=== PATIENT | female | born 1960 | race Caucasian/White ===

== ENCOUNTER → 2016-05-18 | Day surgery (SDC) | payer BC ==
[2016-05-11 07:49] VITALS: Ht 160 cm; Wt 84.1 kg
[~2016-05-18] VITALS: Ht 160 cm; Wt 84.1 kg
[~2016-05-18] MED LIST: ATROPINE SULFATE 0.1 MG/ML 5ML SYR IV PRN; CEFAZOLIN 2000 MG/60 ML D5W IV SCH; DEXAMETHASONE SOD INJ 4 MG/ML VIAL ONE; EpINEphrine INJ 1MG/ML AMP 1 MG/ML AMP ONE; FENTANYL CITRATE INJ 50 MCG/1 ML 2 ML VIAL ONE; KETOROLAC TROMETHAMINE 30 MG/ML VIAL IV. PRN; LABETALOL HCL IV 5 MG/ML 20ML IV PRN; LACTATED RINGER'S 1000ML 1,000 ML IV SCH; LEVOFLOXACIN 500 MG TAB PO SCH; LIDOCAINE HCL 2% 2 ML VIAL (20MG/ML) ONE; MIDAZOLAM HCL 1 MG/ML 2ML VIAL ONE; ONDANSETRON INJ 2 MG/ML 2 ML VIAL IV PRN; ONDANSETRON INJ 2 MG/ML 2 ML VIAL ONE; OXYCODONE/ACETAMINOPHEN 5-325 TAB PO PRN; PROPOFOL IV EMULSION 10 MG/ML 20 ML VIAL IV ONE; ROPIVACAINE 0.5% 5 MG/ML 30 ML VIAL ONE; SODIUM CHLORIDE 0.9% 1000ML 1,000 ML IV SCH
--- NOTE | 2016-05-18 06:58 | History & Physical Bridge Note ---
H&P Re-Evaluation Bridge Note: I have examined the patient, reviewed the History & Physical and in the interval since the performance of the History & Physical I have noted the following changes of clinical significance: No changes noted
--- NOTE | 2016-05-18 06:59 | Discharge Instructions ---
Discharge Instructions Visit Reason for Visit: Right Knee Acl Tear Discharge Discharge Diagnosis / Problem: same Discharge Goals Goal(s): Decrease discomfort, Improve function Medications Stopped Medications Name(s): na Restart Stopped Medication(s): use scripts as directed Activity Recommendations Activity Limitations: as noted below Lifting Limitations: until after follow-up appointment Exercise/Sports Limitations: until after follow-up appointment May Resume Sexual Activity: when tolerated Shower/Bathe: keep incision dry Driving or Machine Use: Weightbearing Status: Right weightbearing (as tolerated) Anesthesia . Post Anesthesia Instructions: If you have had General Anesthesia or IV Sedation: * Do not drive today. * Resume driving when surgeon permits. * Do not make important decisions or sign legal documents today. * Call surgeon for: 1. Temperature elevations greater than 101 degrees F. 2. Uncontrollable pain. 3. Excessive bleeding. 4. Persistent nausea and vomiting. 5. Medication intolerance (nausea, vomiting or rash). * For nausea and vomiting use only clear liquids such as: tea, soda, bouillon until nausea subsides, then gradually increase diet as tolerated. * If you have any concerns or questions, call your surgeon's office. If physician is unavailable and it is an emergency, call 911 or go to the nearest emergency room. . Instructions / Follow-Up Instructions / Follow-Up The following instructions are a useful guide to questions you may have after your Anterior Cruciate Ligament Reconstruction surgery. If you have any questions contact the office at . ACTIVITY RECOMMENDATIONS: * Heavy manual labor is not permitted until 4-6 months after surgery. * Sports are not permitted until 6-9 months after surgery. * Return to activity is individualized. * DRIVING: Driving is not permitted until 3-4 weeks after surgery at a minimum. Please ask your doctor when it is safe to resume driving. If you have an automatic vehicle and your left leg has been operated on, then you may begin driving as soon as you are comfortable and can drive safely. * BATHING: You may shower or sponge-bathe immediately after surgery. The dressing will need to be covered with a plastic bag or plastic wrap until the dressing is changed on the fourth or fifth day after surgery. Once the dressing has been changed on the fourth or fifth day after surgery, you may shower and get the incision wet. * Wash with regular soap and water. * Do not bathe (submerge the incision), soak, swim or use a hot tub until the incision is completely healed over with normal skin and the doctor has given the OK to proceed. * There is no need to apply any ointments, powders or salves to your incision. * Do not apply alcohol or hydrogen peroxide directly to the incision. Diluted peroxide (50:50 mixture with sterile saline) may be used to clean dried blood from around the incision area. WORK/SCHOOL: * You may return to sedentary work or school when you are feeling comfortable. This is usually 3-7 days after surgery. * Expect increased discomfort with increased activity. Continue to elevate and ice the leg as much as possible. DIET: * Resume previous diet. MEDICATIONS: * You will have a prescription for pain medication and an anti-inflammatory medication after surgery. Use the pain pills for severe pain and the anti-inflammatory for less severe pain. * Once the pain pills have run out, try to use the anti-inflammatory. If this is not effective then contact the office for assistance. * The pain medication may cause nausea, constipation and sleepiness. You should see how they affect you before driving or similar activity. * The anti-inflammatory may cause stomach upset and bleeding. If this occurs, let your doctor know immediately . * Some patients may need blood clot prevention. This can be done with either a pill or a simple shot. Your doctor will advise you on when to begin these medications and how to take them. * Do not take aspirin or other anti-inflammatory products (i.e. Advil or Aleve ) if taking blood thinner medication. * Take a stool softener like Colace or a stimulant like Senokot to prevent constipation. SPECIAL CARE INSTRUCTIONS: The following instructions are a useful guide to questions you may have after your surgery. If you have any questions contact the office at . ICE: * You have the option of an ice cooler, gel packs or ice bags. * If you have an ice cooler, refer to the instructions for that device. * If you do not have an ice cooler, then you will need to use ice bags or gel packs. * Do not apply ice directly to the skin. * Use a thin dressing or stockinet between the skin and ice bag. * Apply ice for 20-30 minutes and repeat every 2-4 hours. This is especially important for the first 7-10 days after surgery. * Once the pain improves, use ice as needed. * The ice cooler can be used continuously. ELEVATION: * Keep your leg elevated at or above the level of your heart as much as possible. * Expect some increased discomfort and swelling if you are standing for any length of time. * When lying down, avoid placing anything under your knee. Rather, prop your leg up by placing several pillows under your heel or calf. DRESSING: * Your dressing will be changed at your first therapy appointment approximately 4-5 days after surgery. * Band-Aids, tape strips or gauze may be applied. You may then change your dressing daily. * Always wash your hands prior to touching the incision area. * Reapply dressing followed by the Carlos wrap or Tubi-lead cashier stockinet, ice cooling pad and then the brace. * Once the stitches are removed, you may leave the wound open to air or cover with an Carlos Bandage or Tubi-lead cashier stockinet. * If you have been given a white elastic stocking (DEVIN hose), wear as much as possible for the first 1-3 weeks depending on swelling. * Expect some bloody drainage for the first few days after surgery. * Leave the tape strips in place for 5-7 days. * Band-Aids and gauze may be changed daily. CRUTCHES: * You will need to use crutches after surgery. * Until your first doctor's appointment, you must use your crutches at all times when walking and should put no more than 50% of your normal weight on the surgical leg. * After your first doctor's appointment, you may gradually progress to full weight bearing and discontinue crutches as tolerated under the guidance of your therapist. * If you have had a microfracture procedure done, you may be advised to be non- weight bearing for up to 6 weeks. BRACE: * After surgery, you will be placed into a range of motion brace locked with your leg straight. This brace is to be worn at all times when walking (even with the crutches) and sleeping until your first doctors appointment. * The brace may be removed for therapy. * After your first therapy appointment, your therapist will open the brace to allow bending of the knee once your muscles are working better. * Until your first doctor's appointment, you should sleep with your brace locked with your knee fully straight. * If you have chosen to use a functional ACL brace then this brace will be supplied about 2-3 months after your surgery. During that time, you will attend therapy 2- 3 times per week. You will also need to do daily exercises for range of motion and strength as instructed. PROBLEMS/QUESTIONS: * If you have any problems such as severe pain, numbness, tingling or high fevers or if you have any questions, please contact the office at [phone]. * It is not uncommon to have some numbness and tingling after the surgery especially if you have had a nerve block done. This should gradually improve over the first 1- 2 days. If this persists longer or worsens then contact the office. FOLLOW UP VISIT: * If not already scheduled, please call the office at to schedule follow-up appointments for approximately 10 days and one month after surgery followed by monthly appointments thereafter. Diet Recommendations Recommended Home Diet: resume previous diet Pending Studies Studies pending at discharge: no Medical Emergencies . Who to Call and When: Medical Emergencies: If at any time you feel your situation is an emergency, please call 911 immediately. . Non-Emergent Contact Non-Emergency issues call your: Specialist Call Non-Emergent contact if: temperature is above 101.5 . . "Provider Documentation" section prepared by Anurag Presley.
--- NOTE | 2016-05-18 09:45 | [facility] Post Operative Brief Note ---
Immediate Operative Summary Operative Date May 18, 2016. Pre-Operative Diagnosis Right knee anterior cruciate ligament tear Post-Operative Diagnosis Same as preop Procedure(s) Performed Right Knee Exam Under Anesthesia, Arthroscopy, Anterior Cruciate Ligament Reconstruction With Achilles Allograft, Partial Medial Meniscectomy Surgeon Dr. Presley Rippler Surgeon(s) Marbin Gimenez PA-C Estimated Blood Loss Trace Findings mm tear/early djd/acl tear Fluids (cc crystalloids) 1200cc Specimens None Drains none Anesthesia LMA/block Complication(s) None Disposition Recovery Room / PACU
[2016-05-18] MEDS: FENTANYL CITRATE INJ 50 MCG/1 ML 2 ML VIAL IV PRN ×3 (10:15→10:34)
--- NOTE | 2016-05-18 10:31 | OPERATIVE REPORT ---
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 POSTOPERATIVE DIAGNOSIS: Same. OPERATION PERFORMED: 1. Exam under anesthesia. 2. Diagnostic arthroscopy. 3. Arthroscopic partial medial meniscectomy. 4. Endoscopic ACL reconstruction using Achilles allograft. SURGEON: Dr. Presley. VINEGAR MAKER: Marbin Gimenez PA-C. No resident or fellow available. 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 At this point in time, she continues to have locking, catching, giving way and does not feel secure with her knee. She wants to proceed with surgical treatment. OPERATION AND FINDINGS: OPERATION: The patient appropriately identified, site verified, consent verified, 2 grams of Ancef confirmed as being given. The knee was examined revealing grossly positive Saul, pivot shift, and anterior drawer test. The knee had a minor effusion. The knee was then sterilely prepped and draped in usual routine fashion. Tourniquet inflated to 275 mmHg after exsanguination of limb with a rubber Esmarch bandage and a knee arthroscope through an inframedial and infralateral portal. The knee was then cleaned out of any synovitis and a partial medial meniscectomy was carried out at the posterior half where she had a flap tear that based anteriorly, it was resected to a stable balanced contoured rim. The lateral compartment was relatively healthy with some minor fraying of the lateral meniscus. The intercondylar notch was quite tight. Limited notchplasty was performed, the stump of the ACL debrided, the PCL was intact. There was some minor patellofemoral cartilage changes as well. Once this was all cleaned out the tibial guide was then placed through the anteromedial portal, the skin marked and incision made with full thickness flaps and subperiosteal dissection with care taken to protect the MCL and the capsule. The drill hole was then made. All bone debris removed. The tunnel was then chamfered with the round rasp and the curved rasp. The over the top guide was then seated in appropriate position low on the lateral aspect of the condyle and the tunnel made approximately 30 mm in depth. All bone debris was then removed. The graft which was fashioned on the table prior to this had a 10 mm bone block with a TightRope. It was passed up into the joint, through the tunnels and secured on the femur with cortical suspension with a TightRope with excellent fixation. Prior to passing the graft the tibial socket tunnel was then fixed with the Arthrex washer lock system and 16 mm extended washer was seated with a 4E 6 mm cortical screw with excellent purchase on the washer and the screw. The wound was then irrigated. The tourniquet was deflated. No major bleeding encountered. Intraarticular assessment revealed the graft to be completely without impingement. There was good range of motion to hyperextension. There was good stability, the graft had good tension. The Saul and pivot shift were negative on exam. The wound was then irrigated one final time, 0 Vicryl used to cover the fascia, 2-0 plain for the subcutaneous layer and horizontal mattress 2-0 Prolene for skin. The portals closed with 3-0 nylon. Appropriate soft tissue dressing applied. The patient transferred to recovery room in satisfactory condition having tolerated the procedure well. Estimated blood loss trace. Crystalloid 1600 mL. DVT prophylaxis will be with Lovenox starting tomorrow. I attest to the content of the Intraoperative Record and any orders documented therein. Any exceptio ns are noted below.
--- NOTE | 2016-05-18 10:40 | OPERATIVE REPORT ---
PREOPERATIVE DIAGNOSIS: Right knee anterior cruciate ligament tear with medial meniscal tear. POSTOPERATIVE DIAGNOSIS: Right knee same. PROCEDURE: Right knee arthroscopy, ACL reconstruction using Achilles tendon allograft, and partial medial meniscectomy. SURGEON: Dr. Presley. LABOR RELATIONS WORKER: Marbin Gimenez PA-C. HISTORY OF PRESENT ILLNESS: This 55-year-old white female presented to the office with complaints of right knee instability after injuring herself. She was standing on a seat in an airplane in [place] while putting her overhead bag in the bin. She slipped off the seat and twisted her knee. X-ray and MRI have been obtained. She elects to proceed with surgical intervention in hopes of alleviating her instability and discomfort. OPERATION: The patient was administered regional block and then taken to the operating room where she was given general anesthetic. She was prepped and draped in the usual sterile fashion. Please see Dr. Presley's operative report for specifics of the procedure. I was present for the entire case from initial patient positioning through final wound closure. Assistance was provided in tissue retraction, hemostasis, graft preparation, graft placement, hardware placement, arthroscopy, and final wound closure. The patient was taken to recovery room in satisfactory condition.
--- NOTE | 2016-05-18 10:59 | Anesthesia Progress Nt - [facility] ---
Anesthesia Post Op Note Date & Time May 18, 2016 at 10:58 Vital Signs Pain Intensity: 2 Vital Signs Past 12 Hours Date Time Temp Pulse Resp B/P Pulse Ox O2 Delivery O2 Flow Rate FiO2 05/18/16 10:49 165/81 05/18/16 10:48 85 13 100 05/18/16 10:48 86 13 05/18/16 10:43 100 25 171/100 98 05/18/16 10:43 99 7 89 05/18/16 10:38 150/78 05/18/16 10:34 165/92 05/18/16 10:33 98 20 05/18/16 10:33 97 20 97 05/18/16 10:28 99 14 157/83 100 05/18/16 10:28 92 10 95 05/18/16 10:25 37.4 90 16 160/92 100 Room Air 05/18/16 10:23 192/82 05/18/16 10:18 99 23 160/92 100 05/18/16 10:18 100 23 05/18/16 10:15 165/117 05/18/16 10:13 105 19 93 05/18/16 10:13 107 30 05/18/16 10:09 150/89 05/18/16 10:05 173/74 05/18/16 10:03 108 19 99 05/18/16 10:03 99 30 100 05/18/16 09:59 158/89 05/18/16 09:58 102 12 98 05/18/16 09:58 99 12 05/18/16 09:53 36.5 88 14 158/86 100 6 05/18/16 09:53 155/91 05/18/16 08:10 0 05/18/16 08:05 91 05/18/16 08:05 92 21 99 05/18/16 08:04 131/67 05/18/16 08:00 93 05/18/16 08:00 95 14 98 05/18/16 07:58 139/81 05/18/16 07:55 96 18 98 05/18/16 07:55 95 05/18/16 07:54 92 18 99 05/18/16 07:54 93 05/18/16 07:53 145/71 05/18/16 07:49 91 05/18/16 07:49 92 15 98 05/18/16 07:48 130/83 05/18/16 07:44 85 05/18/16 07:44 86 16 98 05/18/16 07:43 144/76 05/18/16 07:40 90 05/18/16 07:40 92 16 97 05/18/16 07:38 134/77 05/18/16 07:35 95 05/18/16 07:35 94 20 99 05/18/16 07:33 174/88 05/18/16 07:33 160/99 05/18/16 07:30 0 05/18/16 06:32 36.9 88 20 163/99 96 Room Air Notes Mental Status: alert / awake / arousable, participated in evaluation Pt Amnestic to Procedure: Yes Nausea / Vomiting: adequately controlled Pain: adequately controlled Airway Patency, RR, SpO2: stable & adequate BP & HR: stable & adequate Hydration State: stable & adequate Anesthetic Complications: no major complications apparent
[2016-05-18 12:02] VITALS: BP 140/81; O2SAT 95
--- NOTE | 2016-05-19 13:15 | EDITING REQUIRED CODING QUERY ---
MENISCUS TEAR To promote full compliance with coding requirements relating to patient care physician participation is requested in all cases of speedometer inspector uncertainty. Please assist us with the question(s) below: Please specify the type of Meniscus Tear by placing an "X" within the parenthesis ( ). If other please document type. ( ) Current Injury (x ) Old Injury ( ) Other: (Please Specify) Thank you Denisse Flores
== END | disposition home or self-care (01) ==
LOC: X.SURG 06:10
PROVIDERS: ATTEND Physical Medicine & Rehabilitation Sports Medicine
DX: S83.511A Sprain of anterior cruciate ligament of right knee, initial encounter (principal); M23.203 Derangement of unspecified medial meniscus due to old tear or injury, right knee; X58.XXXA Exposure to other specified factors, initial encounter; M23.51 Chronic instability of knee, right knee; E11.9 Type 2 diabetes mellitus without complications; E66.9 Obesity, unspecified; Z68.33 Body mass index [BMI] 33.0-33.9, adult

== ENCOUNTER → 2016-07-05 | Outpatient (CLI) | payer BC | END | disposition home or self-care (01) | LOC: C.RDSM 08:30 | PROVIDERS: ATTEND Physical Medicine & Rehabilitation Sports Medicine | DX: S83.511D Sprain of anterior cruciate ligament of right knee, subsequent encounter (principal); X58.XXXD Exposure to other specified factors, subsequent encounter ==

== ENCOUNTER → 2017-06-06 | Outpatient (CLI) | payer BC | END | disposition home or self-care (01) | LOC: C.RDSM 14:10 | PROVIDERS: ATTEND Physical Medicine & Rehabilitation Sports Medicine | DX: S83.511D Sprain of anterior cruciate ligament of right knee, subsequent encounter (principal); X58.XXXD Exposure to other specified factors, subsequent encounter ==